=== PATIENT | female | born 1960 | race Two or more races ===

== ENCOUNTER 2024-01-26 19:27 | Emergency (ER) | payer OTHER ==
[~2024-01-26] VITALS: Ht 157.5 cm; Wt 64.4 kg
[2024-01-26] MEDS ORDERED: PHENOBARBI20 MG/5 M1 PO (19:58)
[2024-01-26] MEDS ORDERED: DEXAMETHASONE SODIUM PHOSPHATE 4 MG/ML VIAL IM STA (20:15)
[2024-01-26] MEDS ORDERED: ORPHENADRINE CITRATE 30 MG/ML AMPUL IM STA (20:15)
[2024-01-26] MEDS ORDERED: KETOROLAC TROMETHAMINE 30 MG VIAL IM STA (20:15)
[2024-01-26] MEDS ORDERED: ZANAFLEX4 M1 PO (21:19)
[2024-01-26] MEDS ORDERED: DICLOFENAC POTA50 MG PO (21:19)
== END 2024-01-26 21:46 | disposition home or self-care (01) ==
LOC: ER 19:28
DX: M25.512 Pain in left shoulder (principal); M54.2 Cervicalgia; V89.2XXA Person injured in unspecified motor-vehicle accident, traffic, initial encounter